=== PATIENT | male | born 1960 | race Caucasian/White ===

== ENCOUNTER 2017-06-18 13:12 | Emergency (ER) | payer OTHER ==
[2017-06-18 13:16] VITALS: RESP 16; TEMP 97.5
--- NOTE | 2017-06-18 13:23 | EDPHY ---
H & P Stated Complaint: Chest pain, on and off for 2 days. HPI/ROS: CHIEF COMPLAINT: Chest pain HISTORY OF PRESENT ILLNESS: The patient is a 56 y/o male arriving at the referral of urgent care and complaining of intermittent substernal chest pain for the last two days beginning after a long bike ride. His symptoms do not feel like his acid reflux, but do feel like the angina he had prior to his CABG. His medical history includes CAD, CABG, hypertension, hyperlipidemia, ankylosing spondylitis, hemorrhoids, and GERD. His chest pain occurs about every 10 minutes and lasts for a few minutes at a time. He denies shortness of breath or nausea "correlated with the pain," but does endorse some baseline dyspnea and nausea last night. He denies recent illness, fever, vomiting, diarrhea, abdominal pain. He also mentions he gets occasional streaking red blood in his stool that he attributes to his hemorrhoids. REVIEW OF SYSTEMS: A ten point review of systems was performed and is negative with the exception of the items mentioned in the HPI. Past medical history: GERD - Nexium, CAD, angina, hypercholesterolemia, hypertension, ankylosing spondylitis, hemorrhoids Past surgical history: CABG x4, appendectomy Family history: noncontributory Social history: Nonsmoker. Drinks 5 drinks hard alcohol/day. 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 PCP: Dr. Santiago in [place]. 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 Guillaume General Appearance: Alert. Vital signs reviewed. Blood pressure 140/88. Eyes: Pupils equal and round, no conjunctival injection, no discharge. Anicteric. ENT, Mouth: Mucous membranes are moist, no oropharyngeal erythema or edema. Neck: No lymphadenopathy, supple. No JVD. Respiratory: Lungs are clear to auscultation; no wheezes, rales, or rhonchi. Cardiovascular: Regular rate and rhythm; no murmur, rub, or gallop. Gastrointestinal: Abdomen is soft and nontender, no masses or organomegaly, bowel sounds normal. Skin: Warm and dry, no rashes on exposed skin, normal color. Back: Nontender to palpation over the thoracolumbar spine. No CVAT. Extremities: No lower extremity edema, no calf tenderness or swelling. Neurological: Alert and oriented. Moving all four extremities easily and equally. Psychiatric: Normal affect. - Personal History Current Tetanus Diphtheria and Acellular Pertussis (TDAP): Unsure Tetanus Vaccine Date: 9 YRS AGO - Medical/Surgical History Hx Asthma: No Hx Chronic Respiratory Disease: No Hx Diabetes: No Hx Cardiac Disease: Yes Hx Renal Disease: No Hx Cirrhosis: No Hx Alcoholism: No Hx HIV/AIDS: No Hx Splenectomy or Spleen Trauma: No Other PMH: Quadruple bypass 2014 - Social History Smoking Status: Never smoked Constitutional: Initial Vital Signs Temperature (C) 36.4 C 06/18/17 13:13 Heart Rate 85 06/18/17 13:13 Respiratory Rate 16 06/18/17 13:13 Blood Pressure 140/88 H 06/18/17 13:13 O2 Sat (%) 96 06/18/17 13:13 O2 Delivery Mode Room Air Allergies/Adverse Reactions: No Known Allergies Allergy (Verified 04/22/12 20:36) Home Medications: Medication Instructions Recorded Atorvastatin Calcium [Lipitor 10 10 mg PO DAILY 04/22/12 mg (RX)] Nsaids 04/22/12 Medical Decision Making - Diagnostics Imaging: I viewed and interpreted images myself ED Course/Re-evaluation: This is a 56 y/o male with significant cardiac disease history who presents with a 2-day history of intermittent substernal chest pain that feels similar to the angina he experienced prior to his CABG two years ago. His pain began after a long bike ride on Saturday. His exam is unremarkable. Plan for standard chest pain work up including IV, labs, EKG, and chest x-ray. He received aspirin shortly after his arrival in the department. The 12 lead EKG was interpreted by myself. Sinus rhythm rate 80. LVH. See hard copy and/or "tracemaster" electronic copy for interpretation. Chest x-ray: No acute pulmonary disease. 1415: Reassessed patient and discussed work up. His EKG, chest x-ray, and lab work is unremarkable. He has only had an "occasional" ache in his chest since arriving here, but reports up to 20 episodes per day. His last stress test was November 2015 I've compared his EKG today to an EKG 03/13/[address] Morfin's office that was faxed over. It's a bit hard to decipher due to the quality, but looks similar to today's EKG. 1458: Consulted jose alberto LONGO Albert, cardiology. 1508: Reassessed patient and discussed recommendation for admission for serial enzymes, likely echocardiogram and provocative cardiac testing. He is reluctant to be admitted and wants some time to think about it. 1525: Patient has declined offer of admission and has decided to sign out AMA. I 've discussed the risks of leaving including permanent injury and with him. He expresses understanding with these risks and agrees to follow up as an outpatient. He is capable of making his own medical decisions. Return precautions discussed. Updated Dr. Hi, cardiology, with patient's decision to decline admission. Differential Diagnosis: Chest pain including but not limited to myocardial ischemia, pulmonary embolus, chest wall pain, pleural inflammation and pulmonary infectious causes. - Data Points Laboratory Results: Laboratory Results 06/18/17 13:30 06/18/17 13:30 Medications Given: Discontinued Medications Aspirin (Aspirin) 324 mg PO EDNOW ONE Stop: 06/18/17 13:40 Last Admin: 06/18/17 13:42 Dose: 324 mg Departure - Departure Disposition: Against Medical Advice Clinical Impression: Chest pain Qualifiers: Chest pain type: precordial pain Qualified Code(s): R07.2 - Precordial pain Condition: Good Instructions: Chest Pain (ED) Additional Instructions: Follow up with Dr. Morfin in 1-2 days without fail. You will need further provocative cardiac testing to determine the cause of your symptoms. Please return to the ED immediately for any worsening of condition. By leaving against medical advise you have verbalized complete understanding and acceptance of the risks associated with doing so, including, but not limited to, , chronic & permanent disability and impairment, and other circumstances and consequences too numerous to mention herein Referrals: DIANNA SANTIAGO [Other] - As per Instructions Kyle Morfin MD [Medical Doctor] - As per Instructions Report Scribed for: Abbi Chen Report Scribed by: Cait Ponce Date of Report: 06/18/17 Time of Report: 13:37 Physician Review and Approval Statement: 06/18/17 13:23 Portions of this note were transcribed by the medical apparatus model maker. I, Dr. Abbi Chen, personally performed the history, physical exam, and medical decision- making; and confirmed the accuracy of the information in the transcribed note.
--- NOTE | 2017-06-18 13:24 | CPEKG ---
Heart Rate: 80 RR Interval: 750 P-R Interval: 144 QRSD Interval: 92 QT Interval: 348 QTC Interval: 402 P Mcnary: 29 QRS Mcnary: -15 T Wave Mcnary: 26 EKG Severity - ABNORMAL ECG - EKG Impression: SINUS RHYTHM EKG Impression: LEFT VENTRICULAR HYPERTROPHY Electronically Signed By: Abbi Chen 18-Jun-2017 14:10:52
[2017-06-18] MEDS ORDERED: ASPIRIN 81 MG CHEWABLE TAB PO ONE (13:39)
[2017-06-18 13:46] LABS: % IMMATURE GRANULYOCYTES 0.4 % (0.0-1.1); ABSOLUTE IMMATURE GRANULOCYTES 0.02 10^3/uL (0.00-0.10); ADD DIFF? NO; ADD MORPH? NO; ADD SCAN? NO; ATYPICAL LYMPHOCYTE FLAG 20 (0-99); FRAGMENT RBC FLAG 0 (0-99); HEMATOCRIT 43.5 % (40.0-51.0); HEMOGLOBIN 15.3 g/dL (13.7-17.5); LEFT SHIFT FLG 0 (0-99); LIPEMIA HEMOLYSIS FLAG 90 (0-99); MEAN CELL HEMOGLOBIN 32.2 pg (27.9-34.1); MEAN CELL HEMOGLOBIN CONCENTR. 35.2 g/dL (32.4-36.7); MEAN CELL VOLUME 91.6 fL (81.5-99.8); MEAN PLATELET VOLUME 9.1 fL (8.7-11.7); PLATELET CLUMPS FLAG 20 (0-99); PLATELET COUNT 200 10^3/uL (150-400); RED BLOOD CELL COUNT 4.75 10^6/uL (4.40-6.38); RED CELL DISTRIBUTION WIDTH 12.1 % (11.5-15.2)
[2017-06-18 13:57] LABS: ANION GAP 8 mEq/L (8-16); CALCIUM 9.4 mg/dL (8.5-10.4); CARBON DIOXIDE 24 mEq/l (22-31); CHLORIDE 103 mEq/L (97-110); CREATININE 0.9 mg/dL (0.7-1.3); GLOMERULAR FILTRATION RATE > 60; GLUCOSE 91 mg/dL (70-100); POTASSIUM 4.1 mEq/L (3.5-5.2); SODIUM 135 mEq/L (134-144)
[2017-06-18 14:08] LABS: TROPONIN I < 0.012 ng/mL (0.000-0.034)
[2017-06-18 14:09] VITALS: O2SAT 92
[2017-06-18 15:16] VITALS: BP 145/98; PULSE 78
== END 2017-06-18 15:32 | disposition left against medical advice (07) ==
DX: R07.2 Precordial pain (principal); I25.810 Atherosclerosis of coronary artery bypass graft(s) without angina pectoris; I10 Essential (primary) hypertension